=== PATIENT | female | born 1955 | race African-American/Black ===

== ENCOUNTER 2020-09-16 13:14 | Emergency (ER) | payer OTHER ==
[~2020-09-16] VITALS: Ht 167.6 cm; Wt 117.5 kg
[2020-09-16] MEDS ORDERED: NOHOMEMEDICATIONS (13:26)
[2020-09-16 14:36] LABS: ABSOLUTE LYMPHOCYTES 0.7 thou/uL (0.8-5.3); ABSOLUTE MONOCYTES 0.8 thou/uL (0.0-1.2); ABSOLUTE NEUTROPHILS 4.6 thou/uL (1.6-8.1); BASOPHILS 0.5 %; EOSINOPHILS 0.2 %; HEMATOCRIT 39.4 % (37.0-47.0); HEMOGLOBIN 13.2 gm/dL (12.0-15.0); LYMPHOCYTES 11.3 %; MCHC 33.5 g/dL (28.0-37.0); MCV 86.6 fL (80.0-100.0); MONOCYTES 13.7 %; NUCLEATED RBCS 0 /100WBC; PLATELET COUNT* 184 thou/uL (150-400); POLYS 74.3 %; RBC 4.55 mil/uL (4.20-5.00); RDW-CV 13.6 % (10.5-14.5); WBC 6.2 thou/uL (4.0-11.0)
[2020-09-16 14:48] LABS: CALCIUM 8.8 mg/dL (8.5-10.1); POTASSIUM 4.1 mmol/L (3.5-5.1)
[2020-09-16 14:53] LABS: ALBUMIN 3.7 g/dL (3.4-5.0); TOTAL BILIRUBIN 0.3 mg/dL (<0.1-1.0); TOTAL PROTEIN 8.1 g/dL (6.4-8.2)
[2020-09-16 15:15] VITALS: BP 149/70
--- NOTE | 2020-09-16 16:23 | EKG ---
[place] [address] ELECTROCARDIOGRAM REPORT Name: [address] [facility] Room: 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 Hand: : 1955 Requested By: Victor Hugo Breaux Order Number: [id number] MD: Shahram Yanez Measurements Intervals [place] Rate: 82 P: 75 HI: 163 QRS: -10 QRSD: 84 T: 57 QT: 369 QTc: 431 Interpretive Statements Sinus rhythm Left atrial enlargement Abnormal R-wave progression, early transition Baseline wander in lead(s) V3 No previous ECG available for comparison Electronically Signed On 09-16-2020 16:23:12 CDT by Shahram Yanez [email or web address] <ELECTRONICALLY SIGNED> By: Shahram Yanez MD, [facility] 09/16/20 1623 1410 1410 Shahram Yanez MD, [facility] /EPI
== END 2020-09-16 15:15 | disposition left against medical advice (07) ==
LOC: M.ERS 13:14
PROVIDERS: Emergency Medicine Emergency Medical Services
DX: U07.1 COVID-19 (principal); R55 Syncope and collapse